=== PATIENT | female | born 1940 | race Caucasian/White ===

== ENCOUNTER 2017-03-27 15:30 | Emergency (ER) | payer MEDICARE, BC ==
[2017-03-27 15:57] VITALS: BP 135/65
--- NOTE | 2017-03-27 16:22 | EDM.PDOCBH ---
<Anders Conley - Last Filed: 03/27/17 18:54> ED HPI GENERAL MEDICAL PROBLEM - General Chief Complaint: Drug or Alcohol Abuse Stated Complaint: WITHDRAWL SYMPTOMS Time Seen by Provider: 03/27/17 16:21 - History of Present Illness INITIAL COMMENTS - FREE TEXT/NARRATIVE: Here with concerns of ativan use. After her of her 1 month ago, was given ativan, that she had been taking up until one month ago. Was taking up to 2-3 pills per day. After stopping she was feeling somewhat ill with nausea , sweats for 1-2 days. Daughter brings her to the ED with concerns of withdrawal. although at this point, patient denies nausea, tremor. 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 Still grieving, not interested in being referred to counseling Onset Date: 03/24/17 Associated Symptoms: Reports: Nausea/Vomiting (now resolved), Weakness - Related Data Allergies Allergy/AdvReac Type Severity Reaction Status Date / Time No Known Allergies Allergy Verified 02/24/16 16:05 Home Meds: Home Meds Anastrozole [Arimidex] 1 mg PO DAILY 09/14/13 [History] Bimatoprost [LUMIGAN 0.01% Ophth Soln] 2.5 ml EYEBOTH BEDTIME 09/14/13 [History] Calcium Acetate [PhosLo] 667 mg PO DAILY 09/14/13 [History] Timolol [Betimol] 5 ml OP DAILY 09/14/13 [History] amLODIPine [Norvasc] 5 mg PO DAILY 09/14/13 [History] Lisinopril 10 mg PO DAILY 02/24/16 [History] Loperamide [Imodium] 1 cap PO ASDIRECTED 02/24/16 [History] LORazepam [LORazepam] 03/27/17 [History] Sertraline HCl [Sertraline HCl] 200 mg PO BEDTIME 03/27/17 [History] ED ROS GENERAL - Review of Systems Review Of Systems: See Below Constitutional: Reports: No Symptoms HEENT: Reports: No Symptoms Respiratory: Reports: No Symptoms Cardiovascular: Reports: No Symptoms Endocrine: Reports: No Symptoms GI/Abdominal: Reports: No Symptoms : Reports: No Symptoms Musculoskeletal: Reports: No Symptoms ED EXAM, BEHAVIORAL HEALTH - Physical Exam Exam: See Below Exam Limited By: No Limitations General Appearance: Alert, No Apparent Distress Respiratory/Chest: No Respiratory Distress, Lungs Clear, Normal Breath Sounds Cardiovascular: Normal Peripheral Pulses, Regular Rate, Rhythm, No Edema GI/Abdominal: Normal Bowel Sounds Back Exam: Normal Inspection Extremities: Normal Inspection Neurological: Alert Psychiatric: Alert, Tearful. No: Suicidal Thoughts, Pressured Speech COURSE, BEHAVIORAL HEALTH COMP - Course Vital Signs: Last Vital Signs Temp 36.9 C 03/27/17 15:57 Pulse 63 03/27/17 15:57 Resp 16 03/27/17 15:57 BP 135/65 03/27/17 15:57 Pulse Ox 94 L 03/27/17 15:57 Orders, Labs, Meds: Laboratory Tests 03/27/17 03/27/17 03/27/17 Range/Units 16:30 16:30 17:25 WBC 7.5 (4.5-11.0) K/uL RBC 4.69 (3.30-5.50) M/uL Hgb 13.9 (12.0-15.0) g/dL Hct 41.2 (36.0-48.0) % MCV 88 (80-98) fL MCH 30 (27-31) pg MCHC 34 (32-36) % Plt Count 193 (150-400) K/uL Neut % (Auto) 78 H (36-66) % Lymph % (Auto) 12 L (24-44) % [place] % (Auto) 9 H (2-6) % Eos % (Auto) 1 L (2-4) % Baso % (Auto) 0 (0-1) % Sodium 137 L (140-148) mmol/L Potassium 3.6 (3.6-5.2) mmol/L Chloride 103 (100-108) mmol/L Carbon Dioxide 27 (21-32) mmol/L Anion Gap 10.6 (5.0-14.0) mmol/L BUN 8 (7-18) mg/dL Creatinine 0.7 (0.6-1.0) mg/dL Est Cr Clr Drug Dosing 50.65 mL/min Estimated GFR (MDRD) > 60 (>60) Glucose 89 (74-106) mg/dL Calcium 8.5 (8.5-10.1) mg/dL Total Bilirubin 0.9 (0.2-1.0) mg/dL AST 26 (15-37) U/L ALT 33 (12-78) U/L Alkaline Phosphatase 86 (46-116) U/L Total Protein 6.4 (6.4-8.2) g/dL Albumin 3.5 (3.4-5.0) g/dL Globulin 2.9 (2.3-3.5) g/dL Albumin/Globulin Ratio 1.2 (1.2-2.2) Urine Color Yellow Urine Appearance Clear Urine pH 7.0 (4.5-8.0) Ur Specific Mcneal 1.010 (1.008-1.030) Urine Protein Negative (NEGATIVE) mg/dL Urine Glucose (UA) Normal (NEGATIVE) mg/dL Urine Ketones Negative (NEGATIVE) mg/dL Urine Occult Blood Negative (NEGATIVE) Urine Nitrite Negative (NEGATIVE) Urine Bilirubin Negative (NEGATIVE) Urine Urobilinogen Normal (NORMAL) mg/dL Ur Leukocyte Esterase Negative (NEGATIVE) Urine RBC Not seen (0-5) Urine WBC 0-5 (0-5) Ur Epithelial Cells Rare Amorphous Sediment Not seen Urine Bacteria Rare Urine Mucus Not seen Urine Opiates Screen (NEGATIVE) Ur Oxycodone Screen (NEGATIVE) Urine Methadone Screen (NEGATIVE) Ur Propoxyphene Screen (NEGATIVE) Ur Barbiturates Screen (NEGATIVE) Ur Tricyclics Screen (NEGATIVE) Ur Phencyclidine Scrn (NEGATIVE) Ur Amphetamine Screen (NEGATIVE) U Methamphetamines Scrn (NEGATIVE) Urine MDMA Screen (NEGATIVE) U Benzodiazepines Scrn (NEGATIVE) U Cocaine Metab Screen (NEGATIVE) U Marijuana (THC) Screen (NEGATIVE) 03/27/17 Range/Units 17:25 WBC (4.5-11.0) K/uL RBC (3.30-5.50) M/uL Hgb (12.0-15.0) g/dL Hct (36.0-48.0) % MCV (80-98) fL MCH (27-31) pg MCHC (32-36) % Plt Count (150-400) K/uL Neut % (Auto) (36-66) % Lymph % (Auto) (24-44) % [place] % (Auto) (2-6) % Eos % (Auto) (2-4) % Baso % (Auto) (0-1) % Sodium (140-148) mmol/L Potassium (3.6-5.2) mmol/L Chloride (100-108) mmol/L Carbon Dioxide (21-32) mmol/L Anion Gap (5.0-14.0) mmol/L BUN (7-18) mg/dL Creatinine (0.6-1.0) mg/dL Est Cr Clr Drug Dosing mL/min Estimated GFR (MDRD) (>60) Glucose (74-106) mg/dL Calcium (8.5-10.1) mg/dL Total Bilirubin (0.2-1.0) mg/dL AST (15-37) U/L ALT (12-78) U/L Alkaline Phosphatase (46-116) U/L Total Protein (6.4-8.2) g/dL Albumin (3.4-5.0) g/dL Globulin (2.3-3.5) g/dL Albumin/Globulin Ratio (1.2-2.2) Urine Color Urine Appearance Urine pH (4.5-8.0) Ur Specific Mcneal (1.008-1.030) Urine Protein (NEGATIVE) mg/dL Urine Glucose (UA) (NEGATIVE) mg/dL Urine Ketones (NEGATIVE) mg/dL Urine Occult Blood (NEGATIVE) Urine Nitrite (NEGATIVE) Urine Bilirubin (NEGATIVE) Urine Urobilinogen (NORMAL) mg/dL Ur Leukocyte Esterase (NEGATIVE) Urine RBC (0-5) Urine WBC (0-5) Ur Epithelial Cells Amorphous Sediment Urine Bacteria Urine Mucus Urine Opiates Screen Negative (NEGATIVE) Ur Oxycodone Screen Negative (NEGATIVE) Urine Methadone Screen Negative (NEGATIVE) Ur Propoxyphene Screen Negative (NEGATIVE) Ur Barbiturates Screen Negative (NEGATIVE) Ur Tricyclics Screen Negative (NEGATIVE) Ur Phencyclidine Scrn Negative (NEGATIVE) Ur Amphetamine Screen Negative (NEGATIVE) U Methamphetamines Scrn Negative (NEGATIVE) Urine MDMA Screen Negative (NEGATIVE) U Benzodiazepines Scrn Negative (NEGATIVE) U Cocaine Metab Screen Negative (NEGATIVE) U Marijuana (THC) Screen Negative (NEGATIVE) Departure - Departure Time of Disposition: 18:59 Disposition: Home, Self-Care 01 Clinical Impression: Situational depression, Drug withdrawal - Discharge Information Instructions: Chemical Dependency Referrals: PCP,None [Primary Care Provider] - Forms: ED Department Discharge - Assessment/Plan Assessment:: 76 year old female with recent loss of , who was taking ativan up until 1 week ago. Had some mild withdrawal initially, but for past few days feeling better. Brought in by her daughter. In ED, Vitals were stable, and she clinically showed no signs of withdrawal. Urine tox screen was negative. 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
== END 2017-03-27 19:40 | disposition home or self-care (01) ==
LOC: JP.ED 15:30
DX: F32.9 Major depressive disorder, single episode, unspecified (principal); F19.230 Other psychoactive substance dependence with withdrawal, uncomplicated; Z79.899 Other long term (current) drug therapy
CPT/HCPCS: 36415; 80053; 80305; 81001; 85025; 99283; 99284